=== PATIENT | female | born 1995 | race Caucasian/White ===

== ENCOUNTER 2022-02-16 07:06 | Inpatient (IN) | payer BC ==
[~2022-02-16 07:06] MED LIST: Bupivacaine 0.25% 10 ML SDV ONE
[2022-02-16] MEDS ORDERED: Lidocaine 1% 50 ML MDV INJECT ONE (07:25)
[2022-02-16] MEDS ORDERED: Acetaminophen 325 MG Tab PO PRN ×2 (07:25→14:50)
[2022-02-16] MEDS ORDERED: Ondansetron 4 MG/2 ML SDV IVPUSH PRN (07:25)
[2022-02-16] MEDS ORDERED: Nalbuphine 10 MG/1 ML Vial IVPUSH PRN (07:25)
[2022-02-16] MEDS ORDERED: Calcium Carbonate 500 MG Tab.Chew PO PRN (07:25)
[2022-02-16] MEDS ORDERED: Oxytocin/Lactated Ringers 10 UNIT/1,000 ML BAG IV SCH ×2 (07:30)
[2022-02-16] MEDS: Lactated Ringers 1,000 ML IV SCH ×3 (07:48→10:14)
[2022-02-16] MEDS ORDERED: diphenhydrAMINE 50 MG/ML SDV IVPUSH PRN (09:37)
[2022-02-16] MEDS ORDERED: ePHEDrine 50 MG/ML SDV IVPUSH PRN (09:37)
[2022-02-16] MEDS ORDERED: Bupivacaine/fentaNYL/NS 100 ML Bag EPIDUR PRN (09:37)
[2022-02-16] MEDS ORDERED: fentaNYL 100 MCG/2 ML SDV EPIDUR PRN (09:37)
[2022-02-16] MEDS ORDERED: Witch Hazel Medicated Pads 40/Jar TOP PRN (14:50)
[2022-02-16] MEDS ORDERED: Benzocaine/Menthol 20%-0.5% Spray 78 GM Cannister TOP PRN (14:50)
[2022-02-16] MEDS: Ibuprofen 600 MG Tab PO PRN (15:03)
[2022-02-16] MEDS: Docusate Sodium 100 MG Cap PO PRN (15:03)
[2022-02-17] MEDS: Ibuprofen 600 MG Tab PO PRN (09:14)
[2022-02-17] MEDS: Docusate Sodium 100 MG Cap PO PRN (09:15)
== END 2022-02-17 17:30 | disposition home or self-care (01) | DRG 560 ==
LOC: JD.OBCHECK 07:06 → JD.OB 07:13 → OBSVTOIN 07:34 → JD.OBCHECK 07:34 → JD.OB 07:34
PROVIDERS: ADMIT Obstetrics & Gynecology; ATTEND Obstetrics & Gynecology
PROC: 10D07Z6 Extraction of Products of Conception, Vacuum, Via Natural or Artificial Opening (ICD-10-PCS; principal; 2022-02-16)
PROC: 0KQM0ZZ Repair Perineum Muscle, Open Approach (ICD-10-PCS; 2022-02-16)
PROC: 10907ZC Drainage of Amniotic Fluid, Therapeutic from Products of Conception, Via Natural or Artificial Opening (ICD-10-PCS; 2022-02-16)
PROC: 3E0R3BZ Introduction of Anesthetic Agent into Spinal Canal, Percutaneous Approach (ICD-10-PCS; 2022-02-16)
DX: O48.0 Post-term pregnancy (principal); O76 Abnormality in fetal heart rate and rhythm complicating labor and delivery; O99.52 Diseases of the respiratory system complicating childbirth; Z3A.40 40 weeks gestation of pregnancy; O13.4 Gestational [pregnancy-induced] hypertension without significant proteinuria, complicating childbirth; Z37.0 Single live birth; O70.1 Second degree perineal laceration during delivery; O99.892 Other specified diseases and conditions complicating childbirth; R00.1 Bradycardia, unspecified; J45.909 Unspecified asthma, uncomplicated; Z91.09 Other allergy status, other than to drugs and biological substances; Z87.891 Personal history of nicotine dependence; Z79.52 Long term (current) use of systemic steroids; Z79.899 Other long term (current) drug therapy
CPT/HCPCS: 36415; 51702; 59025; 59409; 82565; 84450; 84460; 85027; 86592; 86850; 86900; 86901; A9270-GY; J2590; J3010; J3490; J7120

== ENCOUNTER 2023-04-27 07:05 | Inpatient (IN) | payer OTHER ==
[2023-04-27] MEDS ORDERED: Sodium Chloride 0.9% 10 ML Syringe FLUSH PRN (07:13)
[2023-04-27] MEDS ORDERED: Acetaminophen 325 MG Tab PO PRN (07:13)
[2023-04-27] MEDS ORDERED: Ondansetron 4 MG/2 ML SDV IVPUSH PRN (07:13)
[2023-04-27] MEDS ORDERED: Nalbuphine 10 MG/0.5 ML Syringe IVPUSH PRN (07:13)
[2023-04-27] MEDS ORDERED: Oxytocin/Lactated Ringers 10 UNIT/1,000 ML BAG IV SCH ×2 (07:15)
[2023-04-27] MEDS ORDERED: fentaNYL 100 MCG/2 ML SDV EPIDUR PRN (07:23)
[2023-04-27] MEDS ORDERED: diphenhydrAMINE 50 MG/ML SDV IVPUSH PRN (07:23)
[2023-04-27] MEDS ORDERED: Bupivacaine/fentaNYL/NS 100 ML Bag EPIDUR PRN (07:23)
[2023-04-27] MEDS ORDERED: ePHEDrine 50 MG/ML SDV IVPUSH PRN (07:23)
[2023-04-27 07:43] LABS: HEMATOCRIT 36.5 % (34.1-44.9); HEMOGLOBIN 12.2 gm/dl (11.2-15.7); MEAN CORPUSCULAR HEMOGLOBIN 30.8 pg (25.6-32.2); MEAN CORPUSCULAR HGB CONC 33.4 g/dl (32.2-35.5); MEAN CORPUSCULAR VOLUME 92.2 fl (79.4-94.8); MEAN PLATELET VOLUME 10.6 fl (9.4-12.3); PLATELET COUNT,PLT 218 K/mm3 (182-369); RED BLOOD CELL COUNT 3.96 M/mm3 (3.98-5.22); WHITE BLOOD CELL COUNT,WBC 7.85 K/mm3 (3.98-10.04)
[2023-04-27] MEDS ORDERED: Sodium Chloride 0.9% 10 ML Syringe FLUSH SCH (09:00)
[2023-04-27] MEDS: Lactated Ringers 1,000 ML IV SCH ×2 (09:26→09:50)
[2023-04-27] MEDS ORDERED: Benzocaine/Menthol 20%-0.5% Spray 78 GM Cannister TOP PRN (13:04)
[2023-04-27] MEDS ORDERED: Witch Hazel Medicated Pads 40/Jar TOP PRN (13:04)
[2023-04-27] MEDS ORDERED: Docusate Sodium 100 MG Cap PO PRN (13:04)
[2023-04-28] MEDS: Acetaminophen 325 MG Tab PO PRN ×2 (04:15→08:51)
[2023-04-28] MEDS: Ibuprofen 600 MG Tab PO PRN ×2 (04:16→10:11)
[2023-04-28] MEDS ORDERED: Bisacodyl 10 MG Supp RECTAL ONE (07:11)
== END 2023-04-28 14:00 | disposition home or self-care (01) | DRG 807 ==
LOC: JD.OB 07:05 → INTOOBSV 07:05 → JD.OB 12:10 → OBSVTOIN 12:10 → JD.OB 14:06
PROVIDERS: ADMIT Obstetrics & Gynecology; ATTEND Obstetrics & Gynecology
PROC: 10907ZC Drainage of Amniotic Fluid, Therapeutic from Products of Conception, Via Natural or Artificial Opening (ICD-10-PCS; principal; 2023-04-27)
PROC: 3E0R3BZ Introduction of Anesthetic Agent into Spinal Canal, Percutaneous Approach (ICD-10-PCS; principal; 2023-04-27)
PROC: 00HU33Z Insertion of Infusion Device into Spinal Canal, Percutaneous Approach (ICD-10-PCS; principal; 2023-04-27)
PROC: 10E0XZZ Delivery of Products of Conception, External Approach (ICD-10-PCS; principal; 2023-04-27)
DX: O80 Encounter for full-term uncomplicated delivery (principal); Z37.0 Single live birth; Z3A.39 39 weeks gestation of pregnancy; Z87.891 Personal history of nicotine dependence; Z88.8 Allergy status to other drugs, medicaments and biological substances
CPT/HCPCS: 36415; 51702; 59025; 59409; 85027; 86592; 86850; 86900; 86901; A9270-GY; J2405; J2590; J3010; J3490; J7120